=== PATIENT | female | born 1965 | race Hispanic/Latino ===

== ENCOUNTER 2017-06-27 14:29 | Observation (INO) | payer OTHER ==
[2017-06-27 15:38] LABS: #Eosinphils 0.2 thou/uL (0.0-0.7); #Lymphocytes 2.3 thou/uL (1.20-3.40); #Monocytes 0.4 thou/uL (0.11-0.59); #Neutrophils 3.2 thou/uL (1.40-6.50); %Basophils 0.6 % (0.0-1.0); %Lymphocytes 37.1 % (21.0-51.0); %Monocytes 6.7 % (0.0-10.0); %Neutrophils 51.6 % (42.0-75.0); Mean Corpuscular HGB CONC 34.8 g/dL (32.0-36.0); Mean Corpuscular Hemoglobin 29.7 pg (27.0-31.0); Mean Corpuscular Volume 85.6 fl (81.0-99.0); Mean Platelet Volume 7.6 fL (7.4-10.4); Platelet Count 219 thou/uL (130-400); RBC Distribution Width 12.3 % (11.5-14.5); Red Blood Cell (RBC) Count 5.05 mill/uL (4.20-5.40); White Blood Cell (WBC) Count 6.1 thou/uL (4.8-10.8)
[2017-06-27 15:39] LABS: Bilirubin Negative (Negative); Blood, Urine Negative (Negative); Clarity CLEAR (Clear); Glucose, Urine (Dipstick) Negative (Negative); Leukocyte Negative (Negative); Nitrite Negative (Negative); Pregnancy Test - Urine (BHCG) Negative (Negative); Protein, Urine (Dipstick) Negative (Neg-Trace); Specific Gravity, Urine 1.009 (1.002-1.036); Urobilinogen 0.2 mg/dL (0.2-1.0); pH, Urine 6.5 (5.0-9.0)
[2017-06-27 15:40] LABS: Pregu Control Background? CLEAR/WHITE (CLR/WHITE); Pregu Control Bar Appear? YES (CONTROL BAR); Specific Gravity 1.009 (1.002-1.036)
--- NOTE | 2017-06-27 15:46 | CT ---
CT BRAIN WITHOUT CONTRAST: Date: 06/27/17 HISTORY: Left-sided facial numbness and tingling in left arm. FINDINGS: Comparison made with exam of 09/28/14. No evidence of acute infarct, hemorrhage, midline shift, or abnormal extra-axial fluid collections ar e seen. The ventricular size is normal and the basilar cisterns are patent. The bony calvarium is int act. The visualized paranasal sinuses and mastoid air cells are well aerated. IMPRESSION: No CT evidence of acute intracranial process. Findings called over the telephone to ER physician, Dr. Dawkins, at 1455 hours. CODE CR. POS: [facility]
[2017-06-27 15:47] LABS: INR-International Normal Ratio 0.9; PTT 32.2 SEC (22.9-36.1); Prothrombin Time 12.2 SEC (12.0-14.7)
[2017-06-27 15:48] LABS: Amphetamine Not Detected (NotDetected); Barbiturates Screen Detected (NotDetected); Benzodiazepine Screen Not Detected (NotDetected); Cocaine Metabolite Screen Not Detected (NotDetected); Medtox Control Line Valid? VALID (VALID); Medtox Reader # READER 1; Methadone Not Detected (NotDetected); Methamphetamine Not Detected (NotDetected); Opiate Screen Not Detected (NotDetected); Oxycodone Screen Not Detected (NotDetected); Phencyclidine (PCP) Not Detected (NotDetected); THC/Cannabinoid Screen Not Detected (NotDetected); Tricyclic Screen Not Detected (NotDetected)
[2017-06-27 15:55] LABS: ALT (SGPT) 17 U/L (8-55); AST (SGOT) 16 U/L (5-34); Albumin 4.5 g/dL (3.5-5.0); Alkaline Phosphatase 94 U/L (40-150); Anion Gap 13 mmol/L (10-20); BUN (Urea Nitrogen) 13 mg/dL (9.8-20.1); Bilirubin, Total 0.2 mg/dL (0.2-1.2); Calc. Creatinine Clearance 0 mL/min (70-130); Calcium 9.9 mg/dL (7.8-10.44); Carbon Dioxide 27 mmol/L (22-29); Chloride 103 mmol/L (98-107); Estimated GFR-MDRD 78; Globulin 3.2 g/dL (2.4-3.5); Glucose 106 mg/dL (70-105); Potassium 3.7 mmol/L (3.5-5.1); Protein, Total 7.7 g/dL (6.0-8.3); Sodium 139 mmol/L (136-145)
[2017-06-27 15:58] LABS: CKMB 0.7 ng/mL (0-6.6); Troponin I Less than 0.010 ng/mL (< 0.028)
[2017-06-27] MEDS ORDERED: Aspirin 325 MG TAB ONE (16:36)
[2017-06-27] MEDS ORDERED: Metoclopramide HCl 10 MG/2 ML VIAL ONE (17:34)
[2017-06-27] MEDS ORDERED: Acetaminophen 500 MG TAB ONE (17:34)
--- NOTE | 2017-06-27 18:20 | PDOC.FPRHP ---
- History of Present Illness Chief Complaint: Left sided numbness and tingling, souse reports left facial droop History of Present Illness: 51 yo F w/ PMH of TIA vs CVA is approx 2008 and 2013. According to pt she had rt sided deficit after the episode in 2008 which required approx 2 weeks of rehab and pt for resolution of symptoms. Today she comes in with cc of 1 wk h/o left sided, frontal headache and associated left sided facial numbness and tingling which she describes as fluctuating and associated with her headache. Today the pt woke up with a headache and similar symptoms which she took her prescribed fioricet with some minor relief of symptoms; however, only had symptom relief for 1-2 hours. She states her thought she had some left sided facial droop in addition to dysarthria earlier today, but pt currently denies slurred speech. Currently, the pt reports the numbness and tingling on the left side of her face is resolving and has only a mild headache. Of note, pt has h/o migraines which have been well controlled on triptans, but she was recently switched off of the triptans 2/2 an increase in dosage of another medication the pt takes for "hot flashes" and concern for seratonin syndrome. Pt reports she has since decreased her dose of medication prescribed for "hot flashes," but has not taken triptans since they were dc'd. Pt denies changes in vision, cp, sob, nvdc, lightheadedness, dizziness, fever, chills. ED Course: Tylenol 500mg Aspirin 324mg Reglan 10mg IVF NS 1L Bolus - Allergies/Adverse Reactions Allergies Allergy/AdvReac Type Severity Reaction Status Date / Time tramadol Allergy Intermediate Rash Verified 06/27/17 18:22 - Home Medications Medication Instructions Recorded Confirmed Type Metoclopramide HCl [Reglan] 10 mg PO Q24HR PRN #10 tab 02/23/14 09/28/14 Rx Butalb/Acetaminophen/Caffeine 1 tablet PO Q8HR PRN 09/28/14 09/28/14 History [Butalb/Acetaminophen/Caffeine 50/325/40] Butalb/Acetaminophen/Caffeine 06/27/17 History [Butalb/Acetamin/Caff 50-300-40] Butalbital/Acetaminophen/Caffe 1 tab PO Q6HR PRN 06/27/17 06/27/17 History [Fioricet] Docusate [Colace] 100 mg PO BID PRN 06/27/17 06/27/17 History Lactulose [Lactulose] 06/27/17 History Lisinopril/Hydrochlorothiazide 1 tab PO DAILY 06/27/17 06/27/17 History [Prinizide] Melatonin/Pyridoxine HCL (B6) 1 tab PO HS PRN 06/27/17 06/27/17 History [Melatonin 5 mg Tablet] Pantoprazole Sodium 20 mg PO 06/27/17 History Venlafaxine HCl [Effexor XR] 75 mg PO DAILY 06/27/17 06/27/17 History - History PMHx: 1) Hot flashes 2) HTN 3) Incontinence 4) H/o Uterine ca 5) Adnexal Mass s/p b/l total hysto w/ b/l salpingo-oopherectomy 6) Neurofibromatosis Type 1 7) Migraine, chronic 8) Hyperlipidemia 9) Seasonal allergies PSHx: Appendectomy, cholecystectomy, hysterectomy, b/l salpingooopherectomy FHx: None Social: Non-smoker, non-drinker - Review of Systems General: reports: night sweats ("hot flashes"). denies: fever/chills, fatigue Eyes: denies: eye pain, vision changes ENT: denies: nasal congestion, rhinorrhea Respiratory: denies: cough, congestion, shortness of breath Cardiovascular: denies: chest pain, palpitation, edema Gastrointestinal: denies: nausea, vomiting, diarrhea, constipation, abdominal pain Skin: denies: rashes, jaundice Musculoskeletal: denies: swelling Neurological: reports: numbness, weakness, other (dysarthria, facial droop). denies: syncope, seizure Psychological: reports: anxiety ("worried about a stroke"). denies: depression - Vital signs BP: 120/89 HR: 90 RR: 16 Tmax: 98.3 Pox: 98% on RA Wt: 71kg - Physical Exam Constitutional: NAD, awake, alert and oriented, well developed HEENT: normocephalic and atraumatic, PERRLA, EOMI, no scleral icterus, grossly normal hearing, MMM, oropharynx clear, other (ptosis left eye) Neck: trachea midline, no LAD, no JVD Heart: RRR, normal S1/S2, no murmurs/rubs/gallops, pulses present, no edema Lungs: CTAB, no respiratory distress, good air movement, no rales/rhonchi, no wheezing, no retractions Abdomen: soft, non-tender, bowel sounds present, no masses/distention Musculoskeletal: normal tone, ROM grossly normal Neurological: DTRs 2+, other (Decreased sensation CN V distribution, ptosis left eye, decreased buccal tone left) Skin: good turgor, capillary refill <2 seconds, other (Numerous scattered neurofibromas present) Psychiatric: normal mood and affect, intact recent and remote memory FMR H&P: Results - Labs Result Diagrams: 06/27/17 15:34 06/27/17 15:34 Lab results: WBC 6.1 thou/uL (4.8-10.8) 06/27/17 15:34 Hgb 15.0 g/dL (12.0-16.0) 06/27/17 15:34 Hct 43.2 % (36.0-47.0) 06/27/17 15:34 MCV 85.6 fl (81.0-99.0) 06/27/17 15:34 Plt Count 219 thou/uL (130-400) 06/27/17 15:34 Neutrophils % 51.6 % (42.0-75.0) 06/27/17 15:34 Sodium 139 mmol/L (136-145) 06/27/17 15:34 Potassium 3.7 mmol/L (3.5-5.1) 06/27/17 15:34 Chloride 103 mmol/L (98-107) 06/27/17 15:34 Carbon Dioxide 27 mmol/L (22-29) 06/27/17 15:34 BUN 13 mg/dL (9.8-20.1) 06/27/17 15:34 Creatinine 0.78 mg/dL (0.6-1.1) 06/27/17 15:34 Glucose 106 mg/dL (70-105) H 06/27/17 15:34 Calcium 9.9 mg/dL (7.8-10.44) 06/27/17 15:34 Total Bilirubin 0.2 mg/dL (0.2-1.2) 06/27/17 15:34 AST 16 U/L (5-34) 06/27/17 15:34 ALT 17 U/L (8-55) 06/27/17 15:34 Alkaline Phosphatase 94 U/L (40-150) 06/27/17 15:34 CK-MB (CK-2) 0.7 ng/mL (0-6.6) 06/27/17 15:34 Serum Total Protein 7.7 g/dL (6.0-8.3) 06/27/17 15:34 Albumin 4.5 g/dL (3.5-5.0) 06/27/17 15:34 Urine Ketones Negative mg/dL (Negative) 06/27/17 15:33 Urine Blood Negative (Negative) 06/27/17 15:33 Urine Nitrite Negative (Negative) 06/27/17 15:33 Ur Leukocyte Esterase Negative (Negative) 06/27/17 15:33 FMR H&P: A/P - Problem List (1) Migraine headache Current Visit: Yes Status: Suspected Code(s): G43.909 - MIGRAINE, UNSP, NOT INTRACTABLE, WITHOUT STATUS MIGRAINOSUS (2) HLD (hyperlipidemia) Current Visit: No Status: Chronic Code(s): E78.5 - HYPERLIPIDEMIA, UNSPECIFIED (3) Hypertension Current Visit: No Status: Chronic Code(s): I10 - ESSENTIAL (PRIMARY) HYPERTENSION Qualifiers: Hypertension type: essential hypertension Qualified Code(s): I10 - Essential (primary) hypertension (4) Neurofibromatosis, type 1 Current Visit: No Status: Chronic Priority: Low - Plan 1) Complex migraine, suspected -VS TIA/CVA vs mass/hamartoma - CT head negative for any acute process - h/o of complex migraine in past - given switch in pt migraine medication management likely 2/2 dc'd triptan - Brain MRI in AM to r/o TIA/CVA -Will hld triptan for now as TIA cannot be ruled out - AM FLP - Continue aspirin stain - Speech eval for dysarthria 2) HTN: - Allow for permissive HTN - BPs stable and WNL thus far - Continue meds after 24 hrs permissive htn 3) HLD: - h/o -currently not taking statin - AM FLP - Continue statin in am 4) Neurofibromatosis, type 1: - chronic, stable Disposition/LOS: Stable, </= 2 days, symptomatic meds will be provided FMR H&P: Upper Level - Pertinent history 51 yo HF with PMHx complex migraines, neurofibromatosis type 1, anxiety, and multiple CVA workups that are negative although pt endorses she has had CVAs in past. Presented to ED from home for intractable migraine, L sided facial numbness for >12 hours, possible facial droop (per family member) and 2 hours of L arm tingling that resolved at home. She has been on multiple meds for migraines with recent change away from sumatriptan and nortriptyline due to concern for too many serotonergic meds. She was put on Fioricet (this was used long-term in past although pt states was not working well so stopped). Since change in last 2 wks, pt has had worsened migraines almost daily. Facial numbness and droop have been present in past admissions for TIA/CVA workup with no actual findings of CVA. Pt states that she may have been told she had a CVA in [place] if none in our records. Not currently taking statin or ASA. Observation to stroke unit for workup. Expect 1-2 day stay. - Pertinent findings Gen: NAD, A&Ox4 CV: RRR, no m/r/g Lungs: CTAB, no rales/rhonchi Abd: NT/ND, BS+ Neuro: 3+ biceps reflex on L, IV in R antecubital fossa so unable to assess, 2+ bilateral patellar reflexes, sensation decreased in L V1-V3 distribution of CN5 , L eyelid ptosis, otherwise normal CN exam; no facial droop noted, strength 5/ 5 in all 4 extremities Skin: multiple scattered fleshy raised neurofibromas - Plan Date/Time: 06/27/171806 1. Complex migraine: Suspected although differential also includes TIA/CVA, Torres s palsy, brain mass. Pt has been worked up many times in past with no records or imaging supporting an actual CVA diagnosis despite the patient stating this is so. Brain MRI in 02/14 showed nonspecific L cerebellar changes that could be small AV malformations but not suggestive of ischemic changes. In past, migraine relief has resolved facial numbness. Facial droop has been present in past but exams were always inconsistent and not felt stroke-related. Distant hx of sinus thrombosis as well. Pt also not on ASA or statin which is atypical for hx CVA, although noncompliance may be factor. Family hx of brain tumors. MRI in AM. ASA and statin ordered. RAMON treatment with reglan and IV Benadryl. Avoid triptans for now due to stroke workup. Out of TPA window on arrival. Deficits mostly resolved already. If MRI positive for CVA, carotid screening can be perfomed. Has been negative in last couple years. Neurologist is Dr. Washburn although not seen in a couple years. Observation to stroke unit with 1-2 day stay expected. 2. HTN: allow permissive HTN for 24 hours. Then start home meds. BP appears well controlled with none elevated. 3. HLD: if hx of CVA, pt should be on statin. Check fasting lipid panel and discuss in AM. 4. Hot flashes: Currently taking Effexor for these. Effexor, TCA, and -triptan appear to have raised concern for potential serotonin syndrome so PCP stopped TCA and -triptan. With worsening of migraines, may be more prudent to continue migraine treatment and seek other treatment for hot flashes. Can discuss with PCP. 5. Neurofibromatosis 1: Not felt to be affecting current issue. 6. Prophylaxis: SCDs I, Kyler Waddell, have evaluated this patient and agree with findings/plan as outlined by digital marketing intern resident. Pertinent changes/additions are listed here. Attending Addendum - Attending Addendum Date/Time: 06/27/17 1900 I personally evaluated the patient and discussed the management with Dr. Tan and Dr. Waddell on 05/27/17 at 1730 in the ER. I agree with the History, Examination, Assessment and Plan documented above with any addition or exceptions noted below. The patient presented with a 1 week history of left sided headache with left facial numbness and tingling. She states that her thought her speech was "thick" on 05/26/17 but that has resolved. Her migraine medications have been adjusted as an outpt and her headaches have worsened since stopping sumatriptan. Will admit pt for TIA workup though I suspect this is a complex migraine. Will get MRI.
[2017-06-27] MEDS ORDERED: Ondansetron ODT 4 MG TAB SL PRN (18:36)
[2017-06-27] MEDS ORDERED: Ondansetron PF 4 MG/2 ML Vial IVP PRN (18:36)
[2017-06-27] MEDS ORDERED: Acetaminophen 325 MG TAB PO PRN (18:36)
[2017-06-27 18:38] VITALS: BMI 29.6
[2017-06-27 19:09] LABS: Troponin I Less than 0.010 ng/mL (< 0.028)
[2017-06-27] MEDS ORDERED: Metoclopramide HCl 10 MG TAB PO PRN (19:18)
[2017-06-27] MEDS ORDERED: MELATONIN PO PRN (19:18)
[2017-06-27] MEDS ORDERED: PYRIDOXINE HCL PO PRN (19:18)
[2017-06-27] MEDS ORDERED: Docusate 100 MG CAP PO PRN (19:18)
[2017-06-27] MEDS: Melatonin 3 MG TAB PO PRN (20:34)
[2017-06-27] MEDS ORDERED: diphenhydrAMINE 50 MG/ML VIAL IVP SCH ×2 (21:30→23:15)
[2017-06-27] MEDS ORDERED: Ondansetron ODT 4 MG TAB PO PRN (21:50)
[2017-06-27 22:15] LABS: Troponin I Less than 0.010 ng/mL (< 0.028)
[2017-06-27] MEDS: Sodium Chloride 0.9% 1,000 ML IV SCH (22:36)
[2017-06-28 05:22] LABS: Cardiac Risk 3.8 (Less than 4.5)
[2017-06-28] MEDS: Sodium Chloride 0.9% 1,000 ML IV SCH ×2 (09:06→17:29)
[2017-06-28] MEDS: Aspirin 81 mg Enteric Coated Tablet PO SCH (09:07)
[2017-06-28] MEDS: Famotidine 20 MG TAB PO SCH ×2 (09:07→20:11)
--- NOTE | 2017-06-28 10:20 | PDOC.FM ---
- Subjective Subjective: No acute events overnight. Neuro sx resolved this am. Denies headache this am. - Objective MAR Reviewed: Yes Vital Signs & Weight: Vital Signs (12 hours) Temp Pulse Resp BP Pulse Ox 06/28/17 08:00 97.5 F L 75 18 06/28/17 07:57 97.5 F L 75 18 111/65 96 06/28/17 04:45 97.9 F 80 16 99/61 98 06/28/17 00:38 97.7 F 81 16 112/72 95 Weight Weight 71.123 kg I&O: 06/27/17 06/28/17 06/29/17 06:59 06:59 06:59 Intake Total 936 Output Total 0 Balance 936 Result Diagrams: 06/27/17 15:34 06/27/17 15:34 <Opal Fung - Last Filed: 06/28/17 10:25> - Objective Vital Signs & Weight: Vital Signs (12 hours) Temp Pulse Resp BP Pulse Ox 06/28/17 11:03 98.5 F 82 20 104/66 98 06/28/17 08:00 97.5 F L 75 18 06/28/17 07:57 97.5 F L 75 18 111/65 96 06/28/17 04:45 97.9 F 80 16 99/61 98 Weight Weight 71.123 kg I&O: 06/27/17 06/28/17 06/29/17 06:59 06:59 06:59 Intake Total 936 Output Total 0 Balance 936 Result Diagrams: 06/27/17 15:34 06/27/17 15:34 <Nanette Barton - Last Filed: 06/28/17 14:34> Phys Exam - Physical Examination Constitutional: NAD HEENT: PERRLA, moist MMs nonlabored breathing Cardiovascular: RRR Gastrointestinal: soft, non-tender Musculoskeletal: no edema no facial numbness on exam; mild left sided ptosis; strength 5/5 Psychiatric: normal affect, A&O x 3 Skin: no rash <Opal Fung - Last Filed: 06/28/17 10:25> Dx/Plan (1) Migraine headache Code(s): G43.909 - MIGRAINE, UNSP, NOT INTRACTABLE, WITHOUT STATUS MIGRAINOSUS Status: Suspected (2) HLD (hyperlipidemia) Code(s): E78.5 - HYPERLIPIDEMIA, UNSPECIFIED Status: Chronic (3) Hypertension Code(s): I10 - ESSENTIAL (PRIMARY) HYPERTENSION Status: Chronic QualifierTitle: Hypertension type: essential hypertension Qualified Code( s): I10 - Essential (primary) hypertension (4) Neurofibromatosis, type 1 Status: Chronic (5) Hot flashes Code(s): R23.2 - FLUSHING Status: Acute - Plan Plan: 1. Complex migraine: -Suspected although differential also includes TIA/CVA, brain mass. - Pt has been worked up many times in past with no records or imaging supporting an actual CVA diagnosis despite the patient stating this is so. - Brain MRI in 02/14 showed nonspecific L cerebellar changes that could be small AV malformations but not suggestive of ischemic changes. - In past, migraine relief has resolved facial numbness. Facial droop and left eye ptosis has been present in past but exams were always inconsistent and not felt stroke-related. - Pt also not on ASA or statin which is atypical for hx CVA, although noncompliance may be factor. -Family hx of brain tumors. -MRI in AM. -Continiue ASA and statin -RAMON treatment with reglan and IV Benadryl. Toradol prn. Avoid triptans for now due to stroke workup. Will restart sumatriptan as abortive therapy after MRI. Will knik patient on when and how to take the sumatryptan as she was taking it every day BID. - Out of TPA window on arrival. Deficits mostly resolved already. If MRI positive for CVA, carotid screening can be perfomed. Has been negative in last couple years. -Plan to start propranolol BID for migraine prophylaxis tomorrow after she receives her SCOUT. Okay to restart sumatryptan as abortive management but not prophylactic. Will knik the patient on medication changes. 2. HTN: allow permissive HTN for 24 hours. Then start home meds. BP appears well controlled with none elevated. 3. HLD: if hx of CVA, pt should be on statin. Check fasting lipid panel and discuss in AM. 4. Hot flashes: Currently taking Effexor for these. Effexor, TCA, and -triptan appear to have raised concern for potential serotonin syndrome so PCP stopped TCA and -triptan. With worsening of migraines, may be more prudent to continue migraine treatment and seek other treatment for hot flashes. Can discuss with PCP. Will hold effexor at this time. However, if asymptomatic in regard to serotonin syndrome, it would likely be okay to restart effexor. 5. Neurofibromatosis 1: Not felt to be affecting current issue. 6. Prophylaxis: SCDs <Opal Fung - Last Filed: 06/28/17 10:25> (1) Migraine headache Code(s): G43.909 - MIGRAINE, UNSP, NOT INTRACTABLE, WITHOUT STATUS MIGRAINOSUS Status: Suspected (2) HLD (hyperlipidemia) Code(s): E78.5 - HYPERLIPIDEMIA, UNSPECIFIED Status: Chronic (3) Hypertension Code(s): I10 - ESSENTIAL (PRIMARY) HYPERTENSION Status: Chronic Qualifiers: Hypertension type: essential hypertension Qualified Code(s): I10 - Essential (primary) hypertension (4) Neurofibromatosis, type 1 Status: Chronic <Nanette Barton - Last Filed: 06/28/17 14:34> Attending Addendum - Attending Addendum Date/Time: 06/28/17 [id number] I personally evaluated the patient and discussed the management with Dr. Fung. I agree with the History, Examination, Assessment and Plan documented above with any addition or exceptions noted below. The patient's headache is improved. Tingling and numbness in face is resolved. Will get MRI of the brain today. If normal, may begin propranolol for prophylaxis and imitrex for acute headaches.s <Nanette Barton - Last Filed: 06/28/17 14:34>
[2017-06-28] MEDS ORDERED: Ketorolac Tromethamine 30 MG/ML VIAL IVP PRN (11:05)
--- NOTE | 2017-06-28 11:41 | MRI ---
MRI BRAIN WITHOUT CONTRAST: Date: 06/28/17 HISTORY: Left facial numbness, tingling in left arm, headache, facial droop, and dysarthria. COMPARISON: MRI brain of 02/23/14. CORRELATION: CT brain from previous day. FINDINGS: No restricted diffusion is seen. No evidence of acute infarct, acute hemorrhage, midline shift, or a bnormal extra-axial fluid collections are seen. The ventricular size is normal and the basilar cister ns are patent. The scattered susceptibility foci on GRE imaging in the left cerebellar hemisphere are unchanged. The re is mild mucosal disease in the paranasal sinuses. IMPRESSION: No evidence of acute intracranial process. POS: [facility]
[2017-06-28] MEDS ORDERED: diphenhydrAMINE 50 MG/ML VIAL IVP SCH (14:45)
[2017-06-28] MEDS: Propranolol 40 MG TAB PO SCH (20:11)
[2017-06-28] MEDS: Melatonin 3 MG TAB PO PRN (20:13)
[2017-06-28] MEDS ORDERED: Atorvastatin Calcium 40 MG TAB PO SCH (21:00)
--- NOTE | 2017-06-29 05:31 | PDOC.FM ---
- Subjective Subjective: This morning the patient reports that she was able to sleep the whole night without difficulty. She states she had some headache start at 0300 but it did not wake her up. She rates the pain at 7/10 currently, denies any nausea, vomiting, weakness, or visual changes. Says she feels ready to go home as she thinks the headache is getting better. - Objective Vital Signs & Weight: Vital Signs (12 hours) Temp Pulse Resp BP Pulse Ox 06/29/17 03:18 98.4 F 84 12 125/85 97 06/28/17 23:26 97.3 F L 78 14 116/76 98 06/28/17 20:10 98.1 F 83 12 06/28/17 19:16 98.1 F 83 12 115/73 97 Weight Weight 77.7 kg I&O: 06/27/17 06/28/17 06/29/17 06:59 06:59 06:59 Intake Total 936 3071 Output Total 0 Balance 936 3071 Result Diagrams: 06/27/17 15:34 06/27/17 15:34 <Fidel Rain - Last Filed: 06/29/17 08:58> - Objective Vital Signs & Weight: Vital Signs (12 hours) Temp Pulse Resp BP Pulse Ox 06/29/17 11:19 98.1 F 70 16 138/87 99 06/29/17 08:34 98.1 F 69 16 06/29/17 08:00 98.1 F 69 16 139/85 97 Weight Weight 77.7 kg I&O: 06/28/17 06/29/17 06/30/17 06:59 06:59 06:59 Intake Total 936 3071 240 Output Total 0 Balance 936 3071 240 Result Diagrams: 06/27/17 15:34 06/27/17 15:34 <Lionel Henriquez - Last Filed: 06/29/17 18:11> Phys Exam - Physical Examination HEENT: PERRLA, moist MMs Neck: no nodes, supple Respiratory: no wheezing, clear to auscultation bilateral Cardiovascular: RRR, no significant murmur Gastrointestinal: soft, non-tender, no distention, positive bowel sounds Musculoskeletal: no edema, pulses present Neurological: non-focal, normal sensation, moves all 4 limbs CN II-XII intact Lymphatic: no nodes Psychiatric: normal affect, A&O x 3 <Fidel Rain - Last Filed: 06/29/17 08:58> Dx/Plan (1) Migraine headache Code(s): G43.909 - MIGRAINE, UNSP, NOT INTRACTABLE, WITHOUT STATUS MIGRAINOSUS Status: Suspected (2) Hypokalemia Code(s): E87.6 - HYPOKALEMIA Status: Acute (3) Migraine aura, persistent, intractable Code(s): G43.519 - PERST MIGRAINE AURA W/O CEREBRAL INFRC, NTRCT, W/O STAT MIGR Status: Acute (4) HLD (hyperlipidemia) Code(s): E78.5 - HYPERLIPIDEMIA, UNSPECIFIED Status: Chronic (5) Hypertension Code(s): I10 - ESSENTIAL (PRIMARY) HYPERTENSION Status: Chronic QualifierTitle: Hypertension type: essential hypertension Qualified Code( s): I10 - Essential (primary) hypertension (6) Neurofibromatosis, type 1 Status: Chronic - Plan Plan: 1. Complex migraine: - CT shows no bleed, MRI shows no evidence of stroke - RAMON symptoms improved, no neuro deficits on exam today - home with propranolol and effexor, sumatriptan for breakthrough - d/c home today - f/u in clinic this week 2. HTN: restart home meds 3. HLD: home on high dose statin, f/u in clinic 4. Hot flashes: Currently taking Effexor for these. Effexor, TCA, and -triptan appear to have raised concern for potential serotonin syndrome so PCP stopped TCA and -triptan. With worsening of migraines, may be more prudent to continue migraine treatment and seek other treatment for hot flashes. Can discuss with PCP. Will hold effexor at this time. However, if asymptomatic in regard to serotonin syndrome, it would likely be okay to restart effexor. 5. Neurofibromatosis 1: Not felt to be affecting current issue. 6. Prophylaxis: SCDs <Fidel Rain - Last Filed: 06/29/17 08:58> Attending Addendum - Attending Addendum Date/Time: 06/29/171810 I personally evaluated the patient and discussed the management with Dr. Rian. I agree with the History, Examination, Assessment and Plan documented above with any addition or exceptions noted below. <Lionel Henriquez - Last Filed: 06/29/17 18:11>
[2017-06-29] MEDS: Sodium Chloride 0.9% 1,000 ML IV SCH (05:41)
[2017-06-29] MEDS: Aspirin 81 mg Enteric Coated Tablet PO SCH (08:20)
[2017-06-29] MEDS: Famotidine 20 MG TAB PO SCH (08:20)
[2017-06-29] MEDS: Propranolol 40 MG TAB PO SCH (08:43)
[2017-06-29 10:49] VITALS: TEMP 98.1
[2017-06-29 12:21] VITALS: BP 138/87
--- NOTE | 2017-06-30 03:02 | DIS-2 ---
DATE OF ADMISSION: 06/27/2017 DATE OF DISCHARGE: 06/29/2017 RESIDENT: Fidel Rain M.D. ADMITTING ATTENDING: Lionel Henriquez M.D. DISCHARGE ATTENDING: Lionel Henriquez M.D. CONSULTATIONS: None. PROCEDURES: None. PRIMARY DIAGNOSIS: Complex migraine. SECONDARY DIAGNOSES: Hypertension, hyperlipidemia, hot flashes, neurofibromatosis type 1, and deep thrombosis prophylaxis. DISCHARGE MEDICATIONS: Atorvastatin 40 mg, Fioricet, docusate, lisinopril/ hydrochlorothiazide 10 mg/12.5 mg, propranolol 40 mg, sumatriptan 50 mg. DISCONTINUED MEDICATIONS: None. HISTORY OF PRESENT ILLNESS AND HOSPITAL COURSE: This is a 51-year-old female with past medical history of TIA versus CVA which occurred in approximately 2008 and 2013, patient is poor historian in regards to these events. The patient came in complaining of headache and left-sided deficit. She was complaining of facial numbness and tingling. She denied any slurred speech. She was complaining of tingling running down the left arm. She states that at home she was using triptans daily. Over the course of her hospital stay, she had a CT head, which showed no bleed. She also had an MRI which showed no evidence of stroke. Her headache symptoms improved over the course of her stay and she had no neurological deficits at the time of discharge. She was sent home with propranolol and Effexor to take daily for prophylaxis. Additionally, she was given sumatriptan and instructed to use this only for breakthrough headaches. Her TCA was stopped as there was concern of serotonin syndrome risk being that it was being taken along with Effexor. DISPOSITION: Stable. DISCHARGE INSTRUCTIONS: 1. Location: Home. 2. Diet: Regular. 3. Activity: As tolerated. 4. Followup: Follow up with PCP, Dr. Ivone Zuñiga within 1 week. DARELL
--- NOTE | 2017-07-04 13:20 | EKG ---
Test Reason : Blood Pressure : / mmHG Vent. Rate : 096 BPM Atrial Rate : 096 BPM P-R Int : 150 ms QRS Dur : 086 ms QT Int : 348 ms P-R-T Axes : 036 -31 049 degrees QTc Int : 439 ms Normal sinus rhythm Left axis deviation Abnormal ECG Confirmed by RAMA MENDOSA ([id number]), videotape editor RADHA HOOKS ([id number]) on 07/04/2017 1:20:25 PM Referred By: Confirmed By:RAMA MENDOSA
== END 2017-06-29 12:58 | disposition home or self-care (01) ==
LOC: ERS 14:29 → 2SE 16:19
PROVIDERS: ADMIT Family Medicine; ATTEND Family Medicine
DX: G43.809 Other migraine, not intractable, without status migrainosus (principal); I10 Essential (primary) hypertension; E78.5 Hyperlipidemia, unspecified; Q85.01 Neurofibromatosis, type 1; I69.30 Unspecified sequelae of cerebral infarction; R32 Unspecified urinary incontinence; J30.2 Other seasonal allergic rhinitis; Z79.899 Other long term (current) drug therapy; Z88.5 Allergy status to narcotic agent; Z90.710 Acquired absence of both cervix and uterus; Z90.79 Acquired absence of other genital organ(s); Z90.722 Acquired absence of ovaries, bilateral; Z90.49 Acquired absence of other specified parts of digestive tract; Z85.42 Personal history of malignant neoplasm of other parts of uterus
CPT/HCPCS: 36415; 36416; 70450; 70551; 80053; 80061; 80306; 81003; 81025; 82553; 84484; 85025; 85610; 85730; 93005; 96361; 96374; 96375; G0378; G8996-GN-CH; G8997-GN-CH; J1200; J1885; J2765

== ENCOUNTER 2017-07-29 08:11 | Outpatient (CLI) | payer OTHER ==
--- NOTE | 2017-07-30 11:51 | MMO ---
SCREENING MAMMOGRAPHY: 07/29/2017 HISTORY: Baseline screening mammography. COMPARISON: None. FINDINGS: The patient's mammogram is interpreted with the assistance of computer aided detection. Scattered fibroglandular densities are present. There is no dominant mass or architectural distortio n. There is no concerning microcalcification seen. Benign calcification is noted laterally, on the right. IMPRESSION: BI-RADS 2-Benign findings. Recommend annual screening mammogram. POS: [facility]
== END 2017-07-29 08:12 | disposition home or self-care (01) ==
LOC: SCSMAMMO 08:11
PROVIDERS: ATTEND Family Medicine
DX: Z12.31 Encounter for screening mammogram for malignant neoplasm of breast (principal)
CPT/HCPCS: 77067

== ENCOUNTER 2018-05-05 20:28 | Emergency (ER) | payer OTHER ==
[2018-05-05 20:52] LABS: Bilirubin Negative (Negative); Blood, Urine Negative (Negative); Clarity CLEAR (Clear); Glucose, Urine (Dipstick) Negative (Negative); Leukocyte Negative (Negative); Nitrite Negative (Negative); Protein, Urine (Dipstick) Negative (Neg-Trace); pH, Urine 5.5 (5.0-9.0)
[2018-05-05 21:05] LABS: #Eosinphils 0.2 thou/uL (0.0-0.7); #Lymphocytes 2.5 thou/uL (1.20-3.40); #Monocytes 0.7 thou/uL (0.11-0.59); #Neutrophils 6.3 thou/uL (1.40-6.50); %Basophils 0.3 % (0.0-1.0); %Eosinophils 2.3 % (0.0-10.0); %Lymphocytes 25.5 % (21.0-51.0); %Monocytes 6.9 % (0.0-10.0); %Neutrophils 65.1 % (42.0-75.0); Hemoglobin 14.4 g/dL (12.0-16.0); Mean Corpuscular HGB CONC 34.7 g/dL (32.0-36.0); Mean Corpuscular Hemoglobin 28.6 pg (27.0-31.0); Mean Corpuscular Volume 82.4 fL (78.0-98.0); Mean Platelet Volume 8.2 fL (7.4-10.4); Platelet Count 217 thou/uL (130-400); RBC Distribution Width 12.4 % (11.5-14.5); Red Blood Cell (RBC) Count 5.02 mill/uL (4.20-5.40); White Blood Cell (WBC) Count 9.6 thou/uL (4.8-10.8)
[2018-05-05] MEDS ORDERED: Ondansetron PF 4 MG/2 ML Vial ONE (21:13)
[2018-05-05] MEDS ORDERED: Morphine 4 MG/ML VIAL ONE (21:13)
[2018-05-05 21:30] LABS: ALT (SGPT) 15 U/L (8-55); AST (SGOT) 16 U/L (5-34); Alkaline Phosphatase 104 U/L (40-150); Anion Gap 13 mmol/L (10-20); BUN (Urea Nitrogen) 13 mg/dL (9.8-20.1); Bilirubin, Total 0.6 mg/dL (0.2-1.2); Calc. Creatinine Clearance 0 mL/min (70-130); Calcium 9.3 mg/dL (7.8-10.44); Carbon Dioxide 23 mmol/L (22-29); Estimated GFR-MDRD 85; Globulin 3.2 g/dL (2.4-3.5); Glucose 118 mg/dL (70-105); Lipase 17 U/L (8-78); Protein, Total 7.2 g/dL (6.0-8.3)
[2018-05-05 21:38] LABS: BHCG - Serum Negative (NEGATIVE); Pregs Control Background? CLEAR/WHITE (CLR/WHITE); Pregs Control Bar Appear? YES (CONTROL BAR)
[2018-05-05 21:39] LABS: Chloride 105 mmol/L (98-107); Sodium 137 mmol/L (136-145)
[2018-05-05] MEDS ORDERED: Dicyclomine 20 MG TAB ONE (22:04)
--- NOTE | 2018-05-05 22:56 | CT ---
ABDOMEN AND PELVIS CT SCAN WITH IV CONTRAST: 05/05/18 HISTORY: Left lower quadrant pain with nausea, vomiting, and diarrhea. The lung bases are clear. Status post cholecystectomy with some borderline ductal dilation. There is a small hiatal hernia with focal nodular density adjacent to the hiatal hernia possibly a small lymph node, stable from prior study of 07/23/16. The pancreas, spleen, and adrenal glands are unremarkable. There is some abnormally dilated abnormally thick walled small bowel loops with wall thickness up to approximately 0.8 cm involving small bowel loops in the left upper and mid abdomen which certainly i s concerning for the possibility of some acute enteritis. There is some minimal adjacent mesenteric f at stranding. There is some scattered areas of intraperitoneal fluid including an anterior focus near the umbilicus and some minimal free fluid in the pelvis. The distal and terminal ileum appear unrema rkable. No CT evidence for acute appendicitis. Minimal colonic diverticulosis without acute diverticu litis. IMPRESSION: Some abnormally dilated and fairly markedly abnormal wall thickening of several small bowel loops con cerning for nonspecific ileitis. There is some minimal adjacent mesenteric fat stranding as well as s ome minimal free fluid within the abdomen. No renal calculus or obstruction. Colonic diverticulosi s without diverticulitis. Small hiatal hernia. Other findings as above. POS: ANTONIO
== END 2018-05-05 22:15 | disposition home or self-care (01) ==
LOC: ERS 20:28
DX: K52.9 Noninfective gastroenteritis and colitis, unspecified (principal); G43.909 Migraine, unspecified, not intractable, without status migrainosus; I10 Essential (primary) hypertension; J45.909 Unspecified asthma, uncomplicated; Z86.73 Personal history of transient ischemic attack (TIA), and cerebral infarction without residual deficits; Z79.899 Other long term (current) drug therapy
CPT/HCPCS: 74177; 80053; 81003; 83690; 84703; 85025; 96374; 96375; J2270; J2405

== ENCOUNTER 2018-09-12 09:07 | Observation (INO) | payer OTHER ==
[2018-09-12] MEDS ORDERED: Morphine 4 MG/ML VIAL ONE (09:18)
[2018-09-12] MEDS ORDERED: Ondansetron PF 4 MG/2 ML Vial ONE (09:18)
--- NOTE | 2018-09-12 09:32 | CT ---
CT Brain WO Con: 09/12/2018 9:15 AM CLINICAL HISTORY: Stroke alert; headache with left arm numbness and difficulty swallowing. IMAGING TECHNIQUE: Multiple CT images were obtained of the brain without IV contrast. COMPARISON: June 27, 2017 FINDINGS: Infarct: No acute infarct evident. Hemorrhage: None. Hydrocephalus: None.. Basal cisterns: Normal. Cerebral parenchyma: Normal. Midline shift: None. Cerebellum: Normal. Brainstem: Normal. OTHER: Calvarium: Normal. Visualized Paranasal sinuses: Clear. Extracranial soft tissues:Normal IMPRESSION: No acute intracranial abnormality. Findings called to Dr. Mora at 9:28 AM on September 12, 2018.
[2018-09-12 09:34] LABS: #Eosinphils 0.3 thou/uL (0.0-0.7); #Lymphocytes 1.9 thou/uL (1.20-3.40); #Monocytes 0.5 thou/uL (0.11-0.59); #Neutrophils 3.8 thou/uL (1.40-6.50); %Basophils 0.6 % (0.0-1.0); %Eosinophils 4.4 % (0.0-10.0); %Lymphocytes 29.8 % (21.0-51.0); %Monocytes 7.1 % (0.0-10.0); %Neutrophils 58.1 % (42.0-75.0); Hemoglobin 13.5 g/dL (12.0-16.0); Mean Corpuscular HGB CONC 33.3 g/dL (32.0-36.0); Mean Corpuscular Hemoglobin 27.8 pg (27.0-31.0); Mean Corpuscular Volume 83.5 fL (78.0-98.0); Mean Platelet Volume 7.7 fL (7.4-10.4); Platelet Count 186 thou/uL (130-400); RBC Distribution Width 12.5 % (11.5-14.5); Red Blood Cell (RBC) Count 4.87 mill/uL (4.20-5.40); White Blood Cell (WBC) Count 6.5 thou/uL (4.8-10.8)
--- NOTE | 2018-09-12 09:35 | RAD ---
XR Chest 1 View Portable History: [Headache. Difficulty swallowing.] Comparison: Radiograph 2017 Findings: Lungs are clear. No pneumothorax or effusion. Cardiac silhouette and mediastinal contours a re within normal limits. Impression: No acute intrathoracic abnormality.
[2018-09-12] MEDS ORDERED: Metoclopramide HCl 10 MG/2 ML VIAL ONE (09:37)
[2018-09-12] MEDS ORDERED: diphenhydrAMINE 50 MG/ML VIAL ONE (09:37)
[2018-09-12 09:41] LABS: INR-International Normal Ratio 0.9; PTT 32.9 SEC (22.9-36.1); Prothrombin Time 12.4 SEC (12.0-14.7)
[2018-09-12 09:47] LABS: BHCG - Serum Negative (NEGATIVE); Pregs Control Background? CLEAR/WHITE (CLR/WHITE); Pregs Control Bar Appear? YES (CONTROL BAR)
[2018-09-12 09:54] LABS: ALT (SGPT) 21 U/L (8-55); AST (SGOT) 19 U/L (5-34); Albumin 4.2 g/dL (3.5-5.0); Alkaline Phosphatase 89 U/L (40-150); Anion Gap 16 mmol/L (10-20); BUN (Urea Nitrogen) 8 mg/dL (9.8-20.1); Bilirubin, Total 0.4 mg/dL (0.2-1.2); Calc. Creatinine Clearance 0 mL/min (70-130); Calcium 9.7 mg/dL (7.8-10.44); Carbon Dioxide 23 mmol/L (22-29); Chloride 106 mmol/L (98-107); Estimated GFR-MDRD 89; Globulin 3.1 g/dL (2.4-3.5); Glucose 107 mg/dL (70-105); Potassium 3.7 mmol/L (3.5-5.1); Protein, Total 7.3 g/dL (6.0-8.3); Sodium 141 mmol/L (136-145)
--- NOTE | 2018-09-12 11:03 | PDOC.FPRHP ---
- History of Present Illness Chief Complaint: headache History of Present Illness: 53 yo F with pmhx of complex migraines and TIAs presents with a headache for four days, described as posterior, right-sided and dull. Pt says she came in today because the headache wouldn't go away and she was starting to have symptoms of facial numbness and weakness. She also has tingling behind her right eye. She has some difficulty swallowing water this morning after brushing her teeth and trying to drink mouthwash, was dribbling out of her mouth. She also took the sumatriptan last night and this morning and it has not helped her headache. She also tried aleve which did not help. This feels the same as her usual migraines. She feels restless and had some insomnia because of the headache. She describes a visual aura as "sparkly lights," which she frequently gets with her migraines. She endorses some chest pain last night at 2230. Feels like heartburn. She took her medicine for heartburn which helped some. It was substernal and left sided and radiated down her left arm, felt like a sharp pain, needle, says it comes and goes, can't say how long it lasted for. She took a seth aspirin last night , but it did not help. Pt was laying in bed when the chest pain started. Chest pain now resolved, but patient still has numbness in her L face, L arm, and L leg. In ED: reglan 10 mg IV, benadryl [address] head neg Trop neg x1 CBC and CMP wnl - Allergies/Adverse Reactions Allergies Allergy/AdvReac Type Severity Reaction Status Date / Time No Known Allergies Allergy Verified 09/12/18 16:37 - Home Medications Medication Instructions Recorded Confirmed Type Lisinopril/Hydrochlorothiazide 1 tab PO DAILY 06/27/17 09/12/18 History [Prinizide] Propranolol [Inderal] 40 mg PO BID 30 Days #60 tab 06/29/17 09/12/18 Rx Amitriptyline HCl 75 mg PO DAILY 09/12/18 09/12/18 History Gabapentin [Neurontin] 300 mg PO TID 09/12/18 09/12/18 History Meloxicam 7.5 mg PO DAILY 09/12/18 09/12/18 History Rosuvastatin [Crestor] 20 mg PO HS 09/12/18 09/12/18 History SUMAtriptan Succinate [Imitrex] 100 mg PO Q6HR PRN 09/12/18 09/12/18 History cloNIDine [Catapres] 0.1 mg PO HS 09/12/18 09/12/18 History - History PMHx: 1. GERD 2. Chronic back pain 3. Incontinence 4. HTN 5. Hx TIAs 6. Hx uterine cancer 7. NF type 1 8. chronic/complex migraines 9. HLD 10. Diverticulosis 11. Hot flashes PSHx: 1. Total hysterectomy with b/l oophorectomy 2. Appendectomy 3. Cholecystectomy FHx:Dad-colon cancer first degree relative; dad-htn; fam hx of cva, dm ( maternal grandmother) Social: denies smoking, alcohol, drug use - Review of Systems General: reports: weight/appetite/sleep changes (sleep disturbance), other (hot flashes for four days). denies: fever/chills Eyes: reports: eye pain, vision changes (seeing spots/sparkles, gets with migraines) ENT: reports: other (ringing in ears) Respiratory: denies: cough, congestion, shortness of breath Cardiovascular: reports: chest pain. denies: palpitation Gastrointestinal: denies: vomiting, diarrhea, constipation, abdominal pain, GI bleeding Genitourinary: denies: dysuria, other (hematuria) Skin: denies: rashes, lesions Neurological: reports: numbness (left side of face), other (tingling of left arm and leg, no weakness in extremities). denies: syncope, seizure - Vital signs BP: [160/74] HR: [78] RR: [24] Tmax: [98.1] Pox: [98]% on [RA] Wt: [78 kg] - Physical Exam Constitutional: NAD, awake, alert and oriented, well developed HEENT: normocephalic and atraumatic, PERRLA, EOMI, normal nasal mucosa, MMM, other (scleral injection lefteye) Neck: supple, no LAD Heart: RRR, normal S1/S2, no murmurs/rubs/gallops Lungs: CTAB, no respiratory distress Abdomen: soft, non-tender, bowel sounds present, no masses/distention Musculoskeletal: normal structure, normal tone Neurological: other (L sided facial droop, L facial numbness, L arm and leg numbness. strength 5/5 in upper extremities and RLE, difficult to examine LLE due to pain, strength 4-5/5) Skin: no rash/lesions Psychiatric: normal mood and affect, intact recent and remote memory FMR H&P: Results - Labs Result Diagrams: 09/12/18 09:09/12/18 09: Lab results: WBC 6.5 thou/uL (4.8-10.8) 09/12/18 09: Hgb 13.5 g/dL (12.0-16.0) 09/12/18: Hct 40.6 % (36.0-47.0) 09/12/18: MCV 83.5 fL (78.0-98.0) 09/12/18: Plt Count 186 thou/uL (130-400) 09/12/18 09: Neutrophils % 58.1 % (42.0-75.0) 09/12/18: Sodium 141 mmol/L (136-145) 09/12/18 09: Potassium 3.7 mmol/L (3.5-5.1) 09/12/18 09: Chloride 106 mmol/L (98-107) 09/12/18 09: Carbon Dioxide 23 mmol/L (22-29) 09/12/18 09: BUN 8 mg/dL (9.8-20.1) L 09/12/18 09: Creatinine 0.69 mg/dL (0.6-1.1) 09/12/18 09: Glucose 107 mg/dL (70-105) H 09/12/18 09: Calcium 9.7 mg/dL (7.8-10.44) 09/12/18: Total Bilirubin 0.4 mg/dL (0.2-1.2) 09/12/18: AST 19 U/L (5-34) 09/12/18: ALT 21 U/L (8-55) 09/12/18 09: Alkaline Phosphatase 89 U/L (40-150) 09/12/18 09: Serum Total Protein 7.3 g/dL (6.0-8.3) 09/12/18 09:23 Albumin 4.2 g/dL (3.5-5.0) 09/12/18 09:23 - EKG Interpretation EKG: normal - Radiology Interpretation CT scan - head Status: report reviewed by me Additional comment: negative Chest x-ray Status: image reviewed by me, report reviewed by me Additional comment: no acute cardiopulmonary changes FMR H&P: A/P - Problem List (1) CVA (cerebral vascular accident) Current Visit: Yes Status: Acute Code(s): I63.9 - CEREBRAL INFARCTION, UNSPECIFIED (2) Atypical chest pain Current Visit: Yes Status: Acute Code(s): R07.89 - OTHER CHEST PAIN (3) HLD (hyperlipidemia) Current Visit: No Status: Chronic Code(s): E78.5 - HYPERLIPIDEMIA, UNSPECIFIED (4) Hypertension Current Visit: No Status: Chronic Code(s): I10 - ESSENTIAL (PRIMARY) HYPERTENSION Qualifiers: Hypertension type: essential hypertension Qualified Code(s): I10 - Essential (primary) hypertension (5) Neurofibromatosis, type 1 Current Visit: No Status: Chronic Priority: Low (6) Migraine headache Current Visit: No Status: Chronic Code(s): G43.909 - MIGRAINE, UNSP, NOT INTRACTABLE, WITHOUT STATUS MIGRAINOSUS - Plan Concern for CVA vs complex migraine -NIH score: 3 -Hx of TIA vs CVA (2008, 2013), complex migraine (2018) -CT head neg -MRI negative -TSH, mag, phos pending -AM FLP -Benadryl and reglan PRN for headache -avoid triptans for migraine tx -NPO for speech eval -ASA mg 325 daily -Echo in AM Atypical chest pain -sharp and Substernal/left sided, L arm radiation, non-exertional; heart score 4 -EKG normal, trop neg x1 -continue to trend trops -Stress test in AM, NPO @ midnight -nitro and repeat EKG for chest pain HTN -home meds Code status: Full PCP: Yogesh FMR H&P: Upper Level - Pertinent history 53 yo f with pmhx of TIA vs CVA and complex migraines presents with right sided headache, and left sided numbness/tingling of left face, left arm, and left foot , and chest pain described as substernal/left sided, sharp, comes and goes, with radiation down left arm, admitted for CVA rule out vs complex migraine, and atypical chest pain VSS Left sided decreased sensation of left face, left arm, left leg; 4/5 strength in upper and lower extremities; facial droop of left mouth, otherwise CN intact RRR CTAB abdomen obese, nontender trop: <.01 EKG: no ST changes, NSR Hd CT negative for acute intracranial hemorrhage A/P: #1)possible CVA -DDX: TIA vs complex migraine -admit to the stroke unit, CTA head and neck, MRI brain ordered -pt took aspirin 162mg last night, added FLP, started on atorvastatin 40mg daily -neuro checks q4h, will consult neuro if new found stroke -benadryl and reglan prn headache -hold sumatriptain since pt has chest pain #atypical chest pain- -hrt score of 4 -no stress since 2011 (normal) -will stress after stroke ruled out See newsroom intern note for chronic conditions. DVT prophylaxis: lovenox CODE: full Admit: inpt stroke Reymundo Fung MD, PGY-2 - Plan Date/Time: 09/12/18 [id number] I, [], have evaluated this patient and agree with findings/plan as outlined by newsroom intern resident. Pertinent changes/additions are listed here. Addendum - Attending - Attending Attestation Date/Time: 09/12/18 2939 I personally evaluated the patient and discussed the management with Dr. Rain/ Maria Aehee. I agree with the History, Examination, Assessment and Plan documented above with any addition or exceptions noted below. Patient with history of complicated migraine associated with L sided numbness here with similar presentation. Reports occipital headache for 4 days with photo and phonophobia, nausea, and L sided numbness that began this morning. She also endorses some L sided facial droop that began today. Also complains of some substernal chest pain that began last night but has now resolved. 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 On exam, patient has full strength b/l, but does have some visible facial droop on L sided. Able to raise eyebrows b/l. CT brain and MRI are negative for CVA or hemorrhage. Labs all overall normal. Suspect this is complicated migraine again, exam does not support [place] palsy. Could also be TIA but unable to r/o until headache gone. MRI negative so reassuring. Obs to stroke unit. Work to get headache under control with headache protocol. If deficits continue, consider TIA. Continue ASA therapy. Plan to stress at some point during hospitalization.
[2018-09-12] MEDS ORDERED: Acetaminophen 650 MG Suppository PR PRN (11:40)
[2018-09-12] MEDS ORDERED: Ondansetron PF 4 MG/2 ML Vial IVP PRN (11:40)
[2018-09-12] MEDS ORDERED: Ondansetron ODT 4 MG TAB PO PRN (11:40)
[2018-09-12] MEDS ORDERED: Senokot S 8.6-50 MG TAB PO PRN (11:40)
[2018-09-12] MEDS ORDERED: Bisacodyl 5 MG TAB PO PRN (11:40)
[2018-09-12] MEDS ORDERED: Nitroglycerin 0.4 MG TAB (25 Tab Bottle) PO PRN (11:40)
[2018-09-12] MEDS ORDERED: Enoxaparin Sodium 40 MG/0.4 ML SYRINGE SC SCH (11:45)
[2018-09-12] MEDS ORDERED: diphenhydrAMINE 50 MG/ML VIAL IVP PRN (12:08)
[2018-09-12 12:13] LABS: Magnesium 2.3 mg/dL (1.6-2.6); Phosphorus 4.2 mg/dL (2.3-4.7)
[2018-09-12] MEDS ORDERED: Aspirin 325 mg Enteric Coated Tablet PO SCH (12:15)
[2018-09-12] MEDS ORDERED: Acetaminophen 325 MG TAB ONE (13:05)
[2018-09-12] MEDS: Acetaminophen 325 MG TAB PO PRN (13:12)
--- NOTE | 2018-09-12 13:57 | MRI ---
MRI Brain WO Con: 09/12/2018 12:31 PM CLINICAL HISTORY: Difficulty swallowing with right occipital region headache. TECHNIQUE: Multiplanar, multisequence images were obtained of the brain. COMPARISON: CT the brain without contrast dated September 12, 2018 and MR the brain dated June 28, 2017 FINDINGS: Extra axial spaces: Normal in size and morphology for the patient's age. Hemorrhage: None. Ventricular system: Normal in size and morphology for the patient's age. Basal cisterns: Normal. Cerebral parenchyma: Normal. Midline shift: None. Cerebellum: Normal. Brainstem: Normal. OTHER: Calvarium: Normal. Vascular system: Normal. Visualized Paranasal sinuses: Clear. Visualized Orbits: Normal. Visualized upper cervical spine: Normal. Sella and skull base: Normal. IMPRESSION: No acute intracranial abnormality.
[2018-09-12 14:02] LABS: Troponin I Less than 0.010 ng/mL (< 0.028)
[2018-09-12 16:35] LABS: Troponin I Less than 0.010 ng/mL (< 0.028)
[2018-09-12] MEDS ORDERED: Prochlorperazine Edisylate 10 MG in Sodium Chloride 0.9% 50 ML IVPB SCH (16:45)
[2018-09-12 17:44] VITALS: BMI 31.8
[2018-09-12] MEDS ORDERED: cloNIDine 0.1 MG TAB PO SCH (21:00)
[2018-09-12] MEDS ORDERED: Rosuvastatin 20 MG TAB PO SCH (21:00)
[2018-09-12] MEDS: Famotidine 20 MG TAB PO SCH (22:22)
[2018-09-12] MEDS: Gabapentin 300 MG CAP PO SCH (22:23)
[2018-09-12] MEDS: Metoclopramide HCl 10 MG/2 ML VIAL IVP PRN (22:27)
[2018-09-13 05:42] LABS: #Eosinphils 0.2 thou/uL (0.0-0.7); #Lymphocytes 2.2 thou/uL (1.20-3.40); #Monocytes 0.4 thou/uL (0.11-0.59); #Neutrophils 3.2 thou/uL (1.40-6.50); %Basophils 0.7 % (0.0-1.0); %Eosinophils 3.5 % (0.0-10.0); %Lymphocytes 35.5 % (21.0-51.0); %Monocytes 7.2 % (0.0-10.0); %Neutrophils 53.1 % (42.0-75.0); Hemoglobin 12.2 g/dL (12.0-16.0); Mean Corpuscular HGB CONC 34.5 g/dL (32.0-36.0); Mean Corpuscular Hemoglobin 28.8 pg (27.0-31.0); Mean Corpuscular Volume 83.4 fL (78.0-98.0); Mean Platelet Volume 8.1 fL (7.4-10.4); Platelet Count 163 thou/uL (130-400); RBC Distribution Width 12.3 % (11.5-14.5); Red Blood Cell (RBC) Count 4.25 mill/uL (4.20-5.40); White Blood Cell (WBC) Count 6.1 thou/uL (4.8-10.8)
[2018-09-13 06:13] LABS: ALT (SGPT) 18 U/L (8-55); AST (SGOT) 15 U/L (5-34); Albumin 3.7 g/dL (3.5-5.0); Alkaline Phosphatase 72 U/L (40-150); Anion Gap 11 mmol/L (10-20); BUN (Urea Nitrogen) 14 mg/dL (9.8-20.1); Bilirubin, Total 0.5 mg/dL (0.2-1.2); Calc. Creatinine Clearance 123 mL/min (70-130); Calcium 9.4 mg/dL (7.8-10.44); Carbon Dioxide 27 mmol/L (22-29); Cardiac Risk 3.3 (Less than 4.5); Chloride 105 mmol/L (98-107); Cholesterol 115 mg/dl (< 200 Desired); Estimated GFR-MDRD Greater than 90; Globulin 2.5 g/dL (2.4-3.5); Glucose 104 mg/dL (70-105); HDL Cholesterol 35 mg/dL (>60 Neg Risk); LDL Cholesterol, Calculated 46 mg/dL; Potassium 3.3 mmol/L (3.5-5.1); Protein, Total 6.2 g/dL (6.0-8.3); Sodium 140 mmol/L (136-145); Triglycerides 170 mg/dL (Less than 150)
--- NOTE | 2018-09-13 07:14 | PDOC.FM ---
- Subjective Subjective: Pt denies chest pain, sob, nausea, or vomiting this morning. She does state that the left side of her face is contracted. She numbness this morning. - Objective MAR Reviewed: Yes Vital Signs & Weight: Vital Signs (12 hours) Temp Pulse Resp BP BP Pulse Ox 09/13/18 04:13 95 09/13/18 04:00 97.6 F 64 18 93/60 95 09/13/18 00:00 97.7 F 68 18 119/69 96 09/12/18 22:22 123/77 09/12/18 20:00 97.7 F 66 16 123/77 96 Weight Weight 76.385 kg I&O: 09/12/18 09/13/18 09/14/18 06:59 06:59 06:59 Intake Total 680 Output Total 360 Balance 320 Result Diagrams: 09/13/18 05:12 09/13/18 05:12 Phys Exam - Physical Examination Constitutional: NAD HEENT: moist MMs Neck: no JVD, full ROM Respiratory: no wheezing, no rales, clear to auscultation bilateral Cardiovascular: RRR, no significant murmur Gastrointestinal: soft, non-tender, no distention, positive bowel sounds Musculoskeletal: no edema, pulses present Neurological: normal sensation, moves all 4 limbs Left face has decreaed motion and cheek appears contracted Psychiatric: A&O x 3 Skin: cap refill <2 seconds Dx/Plan (1) Atypical chest pain Code(s): R07.89 - OTHER CHEST PAIN Status: Acute (2) CVA (cerebral vascular accident) Code(s): I63.9 - CEREBRAL INFARCTION, UNSPECIFIED Status: Acute (3) Migraine aura, persistent, intractable Code(s): G43.519 - PERST MIGRAINE AURA W/O CEREBRAL INFRC, NTRCT, W/O STAT MIGR Status: Acute (4) Neurofibromatosis, type 1 Status: Chronic - Plan Plan: This is a 53 yo female with a pmh of HLD, HTN, migraines Weakness and numbness with headaches -CVA ruled out with negative MRI -TSH, mag, phos negative -Echo pending -Continue aspirin -Benadryl and reglan for headache Atypical chest pain -Pending Stress and echo -Negative troponins HTN -Continue home meds Consider outpt neuro consult if stress is negative Addendum - Attending - Attending Attestation Date/Time: 09/13/18 5612 I personally evaluated the patient and discussed the management with Dr. Cruz I agree with the History, Examination, Assessment and Plan documented above with any addition or exceptions noted below. 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 Stress test completed results pending should be able d/c home today pending outcomes stress testing. Arrange outpatient Neurology f/u complex migraine and Smoot Palsy.
[2018-09-13] MEDS: Metoclopramide HCl 10 MG/2 ML VIAL IVP PRN (07:32)
[2018-09-13] MEDS ORDERED: Lisinopril/Hydrochlorothiazide 10 mg/12.5 mg Tablet PO SCH (09:00)
[2018-09-13] MEDS ORDERED: Meloxicam 7.5 MG TAB PO SCH (09:00)
[2018-09-13] MEDS ORDERED: Enoxaparin Sodium 40 MG/0.4 ML SYRINGE SC SCH (09:00)
[2018-09-13] MEDS ORDERED: Aspirin 325 MG TAB PO SCH (09:00)
[2018-09-13] MEDS ORDERED: Aspirin 325 mg Enteric Coated Tablet PO SCH (09:00)
[2018-09-13] MEDS ORDERED: Aspirin 81 mg Enteric Coated Tablet PO SCH (09:00)
[2018-09-13] MEDS ORDERED: Regadenoson 0.4 MG/5 ML SYRINGE ONE (09:47)
--- NOTE | 2018-09-13 11:12 | NM ---
NM Cardiac Stress W EF WF History: [Chest pain] Comparison: Nuclear medicine cardiac stress test 2011 Findings: Stress and rest performed after the intravenous administration of 29 and 11 mCi technetium 99m, respectively. No evidence of scar or ischemia. Normal wall motion. Calculated ejection fraction is 75%. Impression: Normal nuclear medicine cardiac stress test and ejection fraction.
[2018-09-13] MEDS: Famotidine 20 MG TAB PO SCH (11:32)
[2018-09-13] MEDS: Gabapentin 300 MG CAP PO SCH (11:32)
[2018-09-13] MEDS: Acetaminophen 325 MG TAB PO PRN (11:33)
[2018-09-13 11:54] VITALS: TEMP 97.8
[2018-09-13] MEDS ORDERED: Potassium Chloride 20 MEQ TAB PO SCH (12:00)
[2018-09-14 13:31] VITALS: BP 140/87
--- NOTE | 2018-09-15 03:58 | DIS ---
DATE OF ADMISSION: 09/12/2018 DATE OF DISCHARGE: 09/13/2018 ADMITTING ATTENDING: Dr. Chito Kamara. DISCHARGE ATTENDING: Dr. Mack Pate. RESIDENT: Bayron Cruz DO CONSULT: None. PROCEDURES: 1. Chest x-ray, one view, shows no acute intrathoracic abnormalities. 2. CT head without contrast shows no acute intracranial abnormalities. 3. MRI of brain shows no acute intracranial abnormalities. 4. Stress test shows normal nuclear medicine cardiac stress test and ejection fraction. 5. Echocardiogram shows LVEF of 55 % to 60%. PRIMARY DIAGNOSES: Complex migraine and Torres's palsy. Atypical chest pain, likely due to anxiety with a negative cardiac workup. SECONDARY DIAGNOSIS: Hypertension. DISCHARGE MEDICATIONS: 1. Valacyclovir 1000 mg p.o. t.i.d. for 7 days. 2. Prednisone 60 mg p.o. daily for 7 days. 3. Potassium 20 mEq p.o. t.i.d. for 3 days. 4. Artificial Tears instilled one to two drops per affected eye every hour. 5. Amitriptyline 75 mg p.o. daily. 6. Clonidine 0.1 mg p.o. at bedtime. 7. Gabapentin 300 mg p.o. t.i.d. 8. Lisinopril/hydrochlorothiazide 10/12.5 mg one tab p.o. daily. 9. Meloxicam 7.5 mg p.o. daily. 10. Propranolol 40 mg p.o. b.i.d. 11. Rosuvastatin 20 mg p.o. at bedtime. 12. Sumatriptan 100 mg p.o. q.6 hours p.r.n. migraine headache. HISTORY OF PRESENT ILLNESS/BRIEF HOSPITAL COURSE: This is a 53-year-old female with past medical history of complex migraines and TIAs, presents with a headache for 4 days. She also describes right-sided pain and dullness as well as weakness. She states that the headache would not go away, started to have facial numbness and weakness. The patient reports some tingling behind her eye. The patient had difficulty swallowing water after brushing her teeth, the water dribbled out. The patient admitted to the hospital, also complained of chest pain during these episodes. Said that the pain radiated to her left arm. Eldena it was sharp, needle like, comes and goes. She is not sure how long it actually lasted. The patient was admitted to the hospital, underwent testing as above for negative workup of TIA and coronary artery disease at this time. Based on physical exam, the patient was diagnosed with Torres's palsy as well as a migraine headache that was relieved with Benadryl and Reglan following the headache algorithm. At the time of discharge, the patient was stable and the patient continued to have flaccidity of her right facial features consistent with Torres's palsy and normal strength in the rest of her body. The patient was discharged with prednisone for 7 days and valacyclovir for 7 days for treatment of Torres's palsy. DISPOSITION: Stable. DISCHARGE INSTRUCTIONS: 1. Location: Home. 2. Diet: Heart healthy. 3. Activity: As tolerated. 4. Follow up with Dr. Jaramillo in 1-2 weeks. Job ID: [id number]
--- NOTE | 2018-09-18 10:28 | EKG ---
Test Reason : STROKE ALERT Blood Pressure : / mmHG Vent. Rate : 078 BPM Atrial Rate : 078 BPM P-R Int : 156 ms QRS Dur : 074 ms QT Int : 378 ms P-R-T Axes : 020 -16 038 degrees QTc Int : 430 ms Normal sinus rhythm Normal ECG Confirmed by SARAH SOTO ([id number]), food editor RADHA HOOKS ([id number]) on 09/18/2018 10:28:15 AM Referred By: ITALIA Confirmed By:SARAH SOTO
== END 2018-09-13 13:20 | disposition home or self-care (01) ==
LOC: ERS 09:07 → ERHOLD 10:23 → 2SE 15:54
PROVIDERS: ADMIT Student in an Organized Health Care Education/Training Program; ATTEND Student in an Organized Health Care Education/Training Program
DX: G43.519 Persistent migraine aura without cerebral infarction, intractable, without status migrainosus (principal); G51.0 Bell's palsy; R07.2 Precordial pain; K21.9 Gastro-esophageal reflux disease without esophagitis; G89.29 Other chronic pain; M54.9 Dorsalgia, unspecified; I10 Essential (primary) hypertension; E78.5 Hyperlipidemia, unspecified; Q85.01 Neurofibromatosis, type 1; Z86.73 Personal history of transient ischemic attack (TIA), and cerebral infarction without residual deficits; Z79.1 Long term (current) use of non-steroidal anti-inflammatories (NSAID); Z79.899 Other long term (current) drug therapy
CPT/HCPCS: 36415; 70450; 70551; 71045; 78452; 80053; 80061; 83735; 84100; 84443; 84484; 84703; 85025; 85610; 85730; 93005; 93017; 93306; 94760; 96365; 96372; 96375; 96376; A9500; G0378; J0780; J1200; J1650; J2270; J2405; J2765; J2785; J7050

== ENCOUNTER 2019-06-27 08:19 | Outpatient (CLI) | payer OTHER ==
--- NOTE | 2019-06-27 10:06 | ULT ---
GALLBLADDER ULTRASOUND: Date: 06/27/2019 HISTORY: Right upper quadrant pain. FINDINGS: Real-time imaging of the right upper quadrant shows the gallbladder has been removed. Common duct is 6-7 mm. The liver measures 16.5 cm in length. This shows no focal abnormalities. There appears to be a mild increased echogenicity. Right kidney is normal in size and not obstructed. Pancreas is obscure d. IMPRESSION: 1. Increased echogenicity of the kidneys suggesting some fatty change. 2. Post cholecystectomy change. POS: TPC
== END 2019-06-27 08:20 | disposition home or self-care (01) ==
LOC: BICULT 08:19
PROVIDERS: ATTEND Nurse Practitioner Family
DX: R10.13 Epigastric pain (principal); R14.0 Abdominal distension (gaseous); Z90.49 Acquired absence of other specified parts of digestive tract
CPT/HCPCS: 76705

== ENCOUNTER 2019-07-12 09:28 | Emergency (ER) | payer OTHER ==
--- NOTE | 2019-07-12 10:12 | RAD ---
2 view chest: [07/12/2019] Comparison:09/14/2008 HISTORY: Cough, vomiting and nausea FINDINGS: Heart and mediastinal contours are grossly unremarkable. No pneumothorax or pleural fluid. No focal consolidation or alveolar edema. Clips in the right upper quadrant suggest prior cholecystectomy. IMPRESSION: No acute findings.
== END 2019-07-12 10:54 | disposition home or self-care (01) ==
LOC: ERS 09:28
DX: J06.9 Acute upper respiratory infection, unspecified (principal); G43.909 Migraine, unspecified, not intractable, without status migrainosus; I10 Essential (primary) hypertension; G51.0 Bell's palsy; Z86.73 Personal history of transient ischemic attack (TIA), and cerebral infarction without residual deficits
CPT/HCPCS: 71046; 99281

== ENCOUNTER 2019-07-21 14:22 | Outpatient (CLI) | payer OTHER ==
--- NOTE | 2019-07-22 07:37 | RAD ---
EXAM: Two views chest PROVIDED CLINICAL HISTORY: Cough for 2 weeks COMPARISON: 09/12/2018 FINDINGS: Cardiac silhouette and pulmonary vasculature are within normal limits. The lungs are clear. The osse ous structures have a normal appearance. Chest is stable compared to prior exam. IMPRESSION: No acute cardiopulmonary process.
== END 2019-07-21 14:23 | disposition home or self-care (01) ==
LOC: BICRAD 14:22
PROVIDERS: ATTEND Nurse Practitioner Family
DX: J40 Bronchitis, not specified as acute or chronic (principal); R05 Cough
CPT/HCPCS: 71046

== ENCOUNTER 2019-10-27 10:49 | Outpatient (CLI) | payer OTHER ==
--- NOTE | 2019-10-27 11:25 | MMO ---
Bilateral MAMMO Bilat Screen DDI. CLINICAL HISTORY: Patient is 54 years old and is seen for screening. The patient has the following family history of breast cancer: mother, malignant (generic). The patient has no personal history of cancer. VIEWS: The views performed were: bilateral craniocaudal and bilateral mediolateral oblique. FILMS COMPARED: The present examination has been compared to a prior imaging study performed at [facility] on 07/29/2017. This study has been interpreted with the assistance of computer-aided detection. MAMMOGRAM FINDINGS: There are scattered fibroglandular densities. There are stable benign appearing calcifications seen in both breasts. There are no suspicious masses, suspicious calcifications, or new areas of architectural distortion. IMPRESSION: THERE IS NO MAMMOGRAPHIC EVIDENCE OF MALIGNANCY. A ROUTINE FOLLOW-UP MAMMOGRAM IN 1 YEAR IS RECOMMENDED. ACR BI-RADS Category 2 - Benign finding MAMMOGRAPHY NOTE: 1. A negative mammogram report should not delay a biopsy if a dominant of clinically suspicious mass is present. 2. Approximately 10% to 15% of breast cancers are not detected by mammography. 3. Adenosis and dense breasts may obscure an underlying neoplasm. Reported by: JASON WATTERS MD Electonically Signed: [id number]
== END 2019-10-27 10:50 | disposition home or self-care (01) ==
LOC: BICMAMMO 10:49
PROVIDERS: ATTEND Nurse Practitioner Family
DX: Z12.31 Encounter for screening mammogram for malignant neoplasm of breast (principal); Z80.3 Family history of malignant neoplasm of breast
CPT/HCPCS: 77067

== ENCOUNTER 2019-11-29 11:00 | Emergency (ER) | payer OTHER ==
[2019-11-30 12:43] LABS: SARS-CoV-2 MS2 Positive; SARS-CoV-2 N Gene Negative; SARS-CoV-2 S Gene Negative; SARS-CoV-2 by NAA Not Detected (NotDetected); SARS-CoV-2 orf1ab Negative
== END 2019-11-29 11:26 | disposition home or self-care (01) ==
LOC: ERS 11:00
DX: Z20.828 Contact with and (suspected) exposure to other viral communicable diseases (principal); I10 Essential (primary) hypertension; G43.909 Migraine, unspecified, not intractable, without status migrainosus; J45.909 Unspecified asthma, uncomplicated; G51.0 Bell's palsy; Z86.73 Personal history of transient ischemic attack (TIA), and cerebral infarction without residual deficits
CPT/HCPCS: 87635; 99283; U0003

== ENCOUNTER 2020-02-03 12:52 | Emergency (ER) | payer OTHER ==
[2020-02-04 12:06] LABS: SARS-CoV-2 MS2 Positive; SARS-CoV-2 N Gene Negative; SARS-CoV-2 S Gene Negative; SARS-CoV-2 by NAA Not Detected (NotDetected); SARS-CoV-2 orf1ab Negative
== END 2020-02-03 13:30 | disposition home or self-care (01) ==
LOC: ERS 12:52
DX: R05 Cough (principal); R51.9 Headache, unspecified; Z20.828 Contact with and (suspected) exposure to other viral communicable diseases; I10 Essential (primary) hypertension; J45.909 Unspecified asthma, uncomplicated
CPT/HCPCS: 87635; 99283; U0003

== ENCOUNTER 2020-04-16 18:25 | Emergency (ER) | payer OTHER ==
[2020-04-17 12:26] LABS: SARS-CoV-2 MS2 Positive; SARS-CoV-2 N Gene Negative; SARS-CoV-2 S Gene Negative; SARS-CoV-2 by NAA Not Detected (NotDetected); SARS-CoV-2 orf1ab Negative
== END 2020-04-16 18:46 | disposition home or self-care (01) ==
LOC: ERS 18:25
DX: R05 Cough (principal); R51.9 Headache, unspecified; R43.0 Anosmia; Z20.828 Contact with and (suspected) exposure to other viral communicable diseases; I10 Essential (primary) hypertension; G51.0 Bell's palsy; J45.909 Unspecified asthma, uncomplicated; Z86.73 Personal history of transient ischemic attack (TIA), and cerebral infarction without residual deficits
CPT/HCPCS: 87635; 99283; U0003

== ENCOUNTER 2020-05-07 12:17 | Emergency (ER) | payer OTHER ==
[2020-05-07 18:27] LABS: SARS-CoV-2 MS2 Positive; SARS-CoV-2 N Gene Negative; SARS-CoV-2 S Gene Negative; SARS-CoV-2 by NAA Not Detected (NotDetected); SARS-CoV-2 orf1ab Negative
== END 2020-05-07 12:59 | disposition home or self-care (01) ==
LOC: ERS 12:17
DX: R43.8 Other disturbances of smell and taste (principal); R05 Cough; R52 Pain, unspecified; Z20.822 Contact with and (suspected) exposure to COVID-19; I10 Essential (primary) hypertension; G51.0 Bell's palsy; J45.909 Unspecified asthma, uncomplicated
CPT/HCPCS: 87635; 99283; U0003

== ENCOUNTER 2021-07-01 03:50 | Emergency (ER) | payer OTHER ==
[2021-07-01] MEDS ORDERED: Diazepam 5 MG TAB ONE (04:17)
[2021-07-01] MEDS ORDERED: Morphine 4 MG/ML VIAL ONE (04:17)
[2021-07-01] MEDS ORDERED: Ketorolac Tromethamine 30 MG/ML VIAL ONE (04:17)
[2021-07-01 05:07] LABS: Bilirubin Negative (Negative); Blood, Urine Negative (Negative); Clarity Clear (Clear); Glucose, Urine (Dipstick) Normal (Negative); Ketone, Urine Negative (Negative); Leukocyte 250 Leu/uL (Negative); Nitrite Negative (Negative); Protein, Urine (Dipstick) Negative (Neg-Trace); Specific Gravity, Urine 1.025 (1.002-1.036); Urobilinogen Normal mg/dL (Less than 2); pH, Urine 5.5 (5.0-9.0)
[2021-07-01 05:17] LABS: Bacteria/HPF 1+ HPF (None Seen)
== END 2021-07-01 05:32 | disposition home or self-care (01) ==
LOC: ERS 03:50
DX: N39.0 Urinary tract infection, site not specified (principal); G43.909 Migraine, unspecified, not intractable, without status migrainosus; I10 Essential (primary) hypertension; J45.909 Unspecified asthma, uncomplicated
CPT/HCPCS: 81003; 81015; 87077; 87086; 87186; 96372; 99283; J1885; J2270

== ENCOUNTER 2022-01-12 20:51 | Emergency (ER) | payer OTHER ==
[~2022-01-12 20:51] MED LIST: Iopamidol-370 76% 500 ML 1 ML ONE
[2022-01-12] MEDS ORDERED: Ondansetron PF 4 MG/2 ML Vial ONE (21:54)
[2022-01-12] MEDS ORDERED: Morphine 4 MG/ML VIAL ONE (21:54)
[2022-01-12 22:04] LABS: #Eosinphils 0.2 thou/uL (0.0-0.7); #Lymphocytes 2.1 thou/uL (1.20-3.40); #Monocytes 0.4 thou/uL (0.11-0.59); #Neutrophils 3.2 thou/uL (1.40-6.50); %Basophils 0.8 % (0.0-1.0); %Eosinophils 2.8 % (0.0-10.0); %Monocytes 7.1 % (0.0-10.0); %Neutrophils 53.3 % (42.0-75.0); Hemoglobin 13.1 g/dL (12.0-16.0); Mean Corpuscular HGB CONC 34.4 g/dL (32.0-36.0); Mean Corpuscular Hemoglobin 29.2 pg (27.0-31.0); Mean Corpuscular Volume 84.9 fL (78.0-98.0); Platelet Count 200 thou/uL (130-400); RBC Distribution Width 12.4 % (11.5-14.5); Red Blood Cell (RBC) Count 4.49 mill/uL (4.20-5.40); White Blood Cell (WBC) Count 5.9 thou/uL (4.8-10.8)
[2022-01-12 22:27] LABS: ALT (SGPT) 15 U/L (8-55); AST (SGOT) 14 U/L (5-34); Albumin 3.9 g/dL (3.5-5.0); Alkaline Phosphatase 88 U/L (40-110); Anion Gap 16 mmol/L (10-20); BUN (Urea Nitrogen) 14 mg/dL (9.8-20.1); Bilirubin, Total 0.5 mg/dL (0.2-1.2); Calc. Creatinine Clearance 0 mL/min (70-130); Calcium 8.9 mg/dL (7.8-10.44); Carbon Dioxide 23 mmol/L (22-29); Chloride 105 mmol/L (98-107); Estimated GFR 103; Globulin 2.5 g/dL (2.4-3.5); Glucose 98 mg/dL (70-105); Lipase 17 U/L (8-78); Potassium 3.7 mmol/L (3.5-5.1); Protein, Total 6.4 g/dL (6.0-8.3); Sodium 140 mmol/L (136-145)
[2022-01-12 22:34] LABS: Bacteria/HPF None Seen HPF (None Seen); Bilirubin Negative (Negative); Blood, Urine Negative (Negative); Clarity Clear (Clear); Glucose, Urine (Dipstick) Normal (Negative); Ketone, Urine Negative (Negative); Leukocyte 500 Leu/uL (Negative); Nitrite Negative (Negative); Protein, Urine (Dipstick) Negative (Neg-Trace); RBC/HPF 0-3 HPF (0-3); Specific Gravity, Urine 1.031 (1.002-1.036); Urobilinogen Normal mg/dL (Less than 2); WBC/HPF 21-50 HPF (0-3); pH, Urine 5.5 (5.0-9.0)
[2022-01-12] MEDS ORDERED: Promethazine HCl 25 MG in Sodium Chloride 0.9% 100 ML IVPB SCH (22:45)
== END 2022-01-13 00:05 | disposition home or self-care (01) ==
LOC: ERS 20:51
DX: N39.0 Urinary tract infection, site not specified (principal); I10 Essential (primary) hypertension
CPT/HCPCS: 36415; 74177; 80053; 81003; 81015; 83690; 84484; 85025; 87086; 93005; 96361; 96365; 96375; J2270; J2405; J2550; J3490; Q9967

== ENCOUNTER 2022-08-28 14:21 | Emergency (ER) | payer OTHER ==
[2022-08-28 15:37] LABS: #Eosinphils 0.2 thou/uL (0.0-0.7); #Lymphocytes 1.9 thou/uL (1.20-3.40); #Monocytes 0.4 thou/uL (0.11-0.59); #Neutrophils 3.4 thou/uL (1.40-6.50); %Basophils 0.3 % (0.0-1.0); %Eosinophils 3.8 % (0.0-10.0); %Monocytes 5.9 % (0.0-10.0); %Neutrophils 57.1 % (42.0-75.0); Hemoglobin 14.2 g/dL (12.0-16.0); Mean Corpuscular HGB CONC 35.1 g/dL (32.0-36.0); Mean Corpuscular Hemoglobin 29.4 pg (27.0-31.0); Mean Corpuscular Volume 83.7 fl (78.0-98.0); Mean Platelet Volume 7.8 fL (7.4-10.4); Platelet Count 195 10x3/uL (130-400); RBC Distribution Width 12.3 % (11.5-14.5); Red Blood Cell (RBC) Count 4.85 mill/uL (4.20-5.40); White Blood Cell (WBC) Count 5.9 10x3/uL (4.8-10.8)
[2022-08-28 15:56] LABS: ALT (SGPT) 24 U/L (8-55); AST (SGOT) 24 U/L (5-34); Albumin 4.3 g/dL (3.5-5.0); Alkaline Phosphatase 93 U/L (40-110); Anion Gap 12 mmol/L (10-20); BUN (Urea Nitrogen) 8 mg/dL (9.8-20.1); Bilirubin, Total 0.5 mg/dL (0.2-1.2); Calc. Creatinine Clearance 0 mL/min (70-130); Calcium 9.8 mg/dL (7.8-10.44); Carbon Dioxide 27 mmol/L (22-29); Chloride 106 mmol/L (98-107); Estimated GFR 97; Glucose 125 mg/dL (70-105); Lipase 23 U/L (8-78); Potassium 3.6 mmol/L (3.5-5.1); Protein, Total 7.3 g/dL (6.0-8.3); Sodium 141 mmol/L (136-145)
[2022-08-28] MEDS ORDERED: Ketorolac Tromethamine 30 MG/ML VIAL ONE (16:22)
[2022-08-28] MEDS ORDERED: Famotidine/PF 20 mg/2ml Vial ONE (16:22)
[2022-08-28 16:57] LABS: Troponin I Less than 0.010 ng/mL (< 0.028)
== END 2022-08-28 19:08 | disposition home or self-care (01) ==
LOC: ERS 14:21
DX: R10.84 Generalized abdominal pain (principal); I10 Essential (primary) hypertension; E78.5 Hyperlipidemia, unspecified
CPT/HCPCS: 36415; 74177; 80053; 83690; 84484; 85025; 93005; 96374; 96375; J1885; S0028

== ENCOUNTER 2023-02-01 21:41 | Emergency (ER) | payer OTHER ==
[~2023-02-01 21:41] MED LIST changes: -Iopamidol-370 76% 500 ML 1 ML ONE; +Iopamidol-370 76% 500 ML MDV (1 ML CHARGE) ONE
[2023-02-01] MEDS ORDERED: Morphine 4 MG/ML VIAL ONE ×2 (22:01→23:16)
[2023-02-01] MEDS ORDERED: Ondansetron PF 4 MG/2 ML Vial ONE (22:01)
[2023-02-01 22:37] LABS: #Eosinphils 0.3 thou/uL (0.0-0.7); #Monocytes 0.5 thou/uL (0.11-0.59); #Neutrophils 3.3 thou/uL (1.40-6.50); %Basophils 0.6 % (0.0-1.0); %Eosinophils 3.9 % (0.0-10.0); %Monocytes 7.1 % (0.0-10.0); %Neutrophils 49.3 % (42.0-75.0); Hematocrit 38.7 % (36.0-47.0); Hemoglobin 13.4 g/dL (12.0-16.0); Mean Corpuscular HGB CONC 34.6 g/dL (32.0-36.0); Mean Corpuscular Hemoglobin 28.4 pg (27.0-31.0); Mean Platelet Volume 10.1 fL (7.4-10.4); Platelet Count 203 10x3/uL (130-400); Red Blood Cell (RBC) Count 4.72 mill/uL (4.20-5.40); White Blood Cell (WBC) Count 6.7 10x3/uL (4.8-10.8)
[2023-02-01 22:49] LABS: INR-International Normal Ratio 0.9; PTT 31.1 sec (22.9-36.1); Prothrombin Time 12.4 sec (12.0-14.7)
[2023-02-01 23:01] LABS: Troponin I Less than 0.010 ng/mL (< 0.028)
[2023-02-01 23:04] LABS: ALT (SGPT) 11 U/L (8-55); AST (SGOT) 13 U/L (5-34); Albumin 4.1 g/dL (3.5-5.0); Alkaline Phosphatase 94 U/L (40-110); Anion Gap 15 mmol/L (10-20); BUN (Urea Nitrogen) 11 mg/dL (9.8-20.1); Bilirubin, Total 0.2 mg/dL (0.2-1.2); Calc. Creatinine Clearance 0 mL/min (70-130); Calcium 9.2 mg/dL (7.8-10.44); Carbon Dioxide 22 mmol/L (22-29); Chloride 107 mmol/L (98-107); Estimated GFR 103; Globulin 2.7 g/dL (2.4-3.5); Glucose 104 mg/dL (70-105); Lipase 32 U/L (8-78); Potassium 3.1 mmol/L (3.5-5.1); Protein, Total 6.8 g/dL (6.0-8.3); Sodium 141 mmol/L (136-145)
== END 2023-02-02 00:05 | disposition home or self-care (01) ==
LOC: ERS 21:41
DX: R10.9 Unspecified abdominal pain (principal); R19.7 Diarrhea, unspecified; R11.0 Nausea; E78.5 Hyperlipidemia, unspecified; I10 Essential (primary) hypertension; Z79.899 Other long term (current) drug therapy
CPT/HCPCS: 36415; 74177; 80053; 83605; 83690; 84484; 85025; 85610; 85730; 93005; 96374; 96375; 96376; J2270; J2405; Q9967